=== PATIENT | male | born 1970 | race Caucasian/White ===

== ENCOUNTER 2020-04-03 21:12 | Emergency (ER) | payer OTHER, SELFPAY ==
[2020-04-03 21:20] VITALS: BP 141/77; PULSE 81; RESP 16; TEMP 36.6; O2SAT 97; BMI 24.3
--- NOTE | 2020-04-03 21:25 | PC.NURSE ---
provider set up with suture tray and wash basin with betadine. Provider numbed finger and cleaned wound.
[2020-04-03] MEDS: TET,DIPH,PERTUSS(ACELL),VAC/PF 0.5 ML SYRINGE IM (21:30)
[2020-04-03] MEDS: BACITRACIN OINT 0.9 GM PCKT 1 APPLIC TOP (21:48)
--- NOTE | 2020-04-03 21:48 | ED.WOUNDLAC ---
HPI - Wound/Laceration General Chief Complaint: Wound/Laceration Stated Complaint: laceration to pinky finger left hand Time Seen by Provider: 04/03/20 21:15 Source: patient Mode of arrival: Ambulatory Limitations: no limitations History of Present Illness HPI narrative: 49M former smoker presents with laceration to left pinky while working on a car. He caught it on some sharp plastic. He denies any numbness, tingling or weakness. He states that bled significantly early on but after pressure became controlled. His tetanus is not up-to-date. Patient denies any fever chills nor chest pain or shortness of breath. He is otherwise well and free of complaint Onset (ago): hour(s) Extremity Location: Left: hand Place: work Patient tetanus UTD: No Context: accidental Associated symptoms: none Treatments prior to arrival: bandage Related Data Previous Rx's Medication Instructions Recorded cephalexin [Keflex] 500 mg PO QID 7 Days #28 cap 04/03/20 Allergies Allergy/AdvReac Type Severity Reaction Status Date / Time Penicillins Allergy Verified 04/03/20 21:22 Review of Systems Constitutional Constitutional: Denies chills, Denies fatigue, Denies fever(s), Denies frequent falls, Denies lethargy and Denies weakness Eyes Eyes: Denies change in vision, Denies eye discharge, Denies irritation and Denies loss of vision ENT Ears, Nose, Mouth, and Throat: Denies change in voice, Denies dizziness, Denies neck pain, Denies sore throat and Denies throat swelling Cardiovascular Cardiovascular: Denies chest pain, Denies irregular heart rhythm, Denies lightheadedness, Denies palpitations, Denies dyspnea, Denies dyspnea on exertion and Denies orthopnea Respiratory Respiratory: Denies cough, Denies dyspnea, Denies dyspnea on exertion and Denies wheezing Gastrointestinal Gastrointestinal: Denies abdominal pain, Denies change in bowel habits, Denies diarrhea, Denies nausea and Denies vomiting Genitourinary Genitourinary: Denies hematuria, Denies flank pain, Denies urinary incontinence and Denies urinary urgency Musculoskeletal Musculoskeletal: Denies back pain, Denies muscle weakness, Denies neck pain, Denies numbness and Denies tingling Integumentary/Breasts Skin/Breast: Denies pruritus, Denies erythema, Denies rash and Reports wounds Neurologic Neurologic: Denies behavioral changes, Denies confusion, Denies dizziness, Denies frequent falls, Denies loss of vision, Denies numbness, Denies tingling and Denies weakness Psychiatric Psychiatric: Denies anxiety, Denies behavioral changes, Denies confusion, Denies depression, Denies homicidal ideation and Denies suicidal ideation Endocrine Endocrine: Denies fatigue, Denies flushing and Denies palpitations Hematologic/Lymphatic Hematologic/Lymphatic: Denies easy bruising Allergic/Immunologic Allergic/Immunologic: Denies urticaria, Denies throat swelling and Denies wheezing Patient History alcohol intake frequency: holidays/special occasions only Exam Narrative Exam Narrative: GEN: AOx3 and in mild distress EYES: Pupils are equal, round, and reactive to light and accommodation. Extraoccular muscles are intact bilaterally. There is no subconjunctival hemorrhage or exudate. CHEST: Lungs are clear to auscultation bilaterally and free of wheezes, rales, or rhonchi. Heart rate is regular rhythm, there are no murmurs, clicks, rubs, or gallops. There is no chest wall tenderness. ABD: Abdomen is soft and nontender. There is no guarding or rebound. Bowel sounds are normal in all 4 quadrants. There is no mass or organomegaly. EXT: 1.5cm laceration on lateral aspect of left fifth finger. No FB noted. No tendon or arterial involvemtn. Full painless ROM of all extremities with no loss of sensation or strength. SKIN: Warm, pink, and dry. No erythema or rash Initial Vital Signs Initial Vital Signs: Vital Signs Temperature 98 F 04/03/20 21:20 Pulse Rate 81 04/03/20 21:20 Respiratory Rate 16 04/03/20 21:20 Blood Pressure 141/77 H 04/03/20 21:20 Pulse Oximetry 97 04/03/20 21:20 Procedures Laceration Repair Laceration 1: Site: upper extremity Side (If applicable): right Size (cm): 1.5 Description: linear Depth: simple, single layer Local Anesthetic: bupivacaine 0.25% Amount of anesthesia used (mL): 4 Pre-repair: wound explored, irrigated extensively and deep structures intact Skin layer closed with: nylon Size (cm): 5-0 Number of sutures: 4 Technique: simple, interrupted Course Orders Ordered: Discontinued Medications Bacitracin (Bacitracin) 1 applic TOP NOW ONE Stop: 04/03/20 21:44 Diphtheria/Tetanus/Acell Pertussis (Adacel) 0.5 ml IM .ONCE ONE Stop: 04/03/20 21:21 Last Admin: 04/03/20 21:30 Dose: 0.5 ml Documented by: VASQUEZ Lidocaine/Sodium Bicarbonate (Buffered Lidocaine 10 Ml Syr) 10 ml INJ NOW ONE Stop: 04/03/20 21:21 Vital Signs Vital signs: Vital Signs - 8 hr 04/03/20 21:20 Temperature 98 F Pulse Rate 81 Respiratory Rate 16 Blood Pressure 141/77 H Pulse Oximetry 97 Discharge Plan Departure Patient Disposition: Home Clinical Impression: Laceration Discharge Date/Time: 04/03/20 21:56 Instructions: DI for Laceration Repair Activity Restrictions/Additional Instructions: Please keep the wound clean and dry to the best of your ability. Please monitor for signs of infection such as redness to the skin or increasing pain. Have the sutures removed by your doctor in about 7 days. If you are unable to get into your doctor, we would be happy to remove the sutures in that same timeframe. Prescriptions: New cephalexin [Keflex] 500 mg capsule 500 mg PO QID 7 Days Qty: 28 RF: 0
--- NOTE | 2020-04-03 21:49 | PC.NURSE ---
provider placed four stitches. bacitracin applied and covered with bandaid.
[2020-04-03 21:55] VITALS: BP 144/81; PULSE 88; RESP 16; O2SAT 99
== END 2020-04-03 21:56 | disposition home or self-care (01) ==
PROVIDERS: Emergency Provider Emergency Medicine
DX: S61.217A Laceration without foreign body of left little finger without damage to nail, initial encounter (principal); W26.8XXA Contact with other sharp object(s), not elsewhere classified, initial encounter; Z23 Encounter for immunization
CPT/HCPCS: 12001; 90471; 99283; 90715

== ENCOUNTER → 2021-01-31 16:04 | Outpatient (CLI) | payer OTHER, SELFPAY ==
--- NOTE | 2021-01-31 16:09 | DI.MRI.S_ITS ---
PROCEDURE: MR WRIST RT WO CON INDICATIONS: PAIN RIGHT WRIST TECHNIQUE: Noncontrast coronal proton density fast spin echo and T2 fast spin echo with fat saturation; coronal 3-D gradient echo, axial T1 spin echo and T2 fast spin echo with fat saturation, sagittal T1 spin echo through the wrist. COMPARISON: None. FINDINGS: Image quality: Excellent. Bones and cartilage: The carpal bones are normally aligned. No bone marrow contusions or fractures. No evidence for avascular necrosis. There is thickened appearance of the radial and ulnar collateral ligaments at the 1st CMC joint, technically age indeterminate. Scattered degenerative subchondral sclerosis and spurring. 5th MCP joint effusion Carpal ligaments: The triquetral ligament appears intact. The scapholunate ligament appears intact although there is some internal T2 hyperintensity, for example image 7/6. In the absence of intra-articular contrast, the extrinsic carpal ligaments are not well identified. On sagittal images, the pisohamate ligament appears intact. Triangular fibrocartilage complex: The triangular fibrocartilage appears intact. The adjacent meniscal homolog appears normal in the absence of intra-articular contrast. The extensor carpi ulnaris tendon is intact although there is mild tenosynovitis. Tendons and soft tissues: The carpal tunnel structures appear normal, including the median nerve. The ulnar nerve appears normal within Guyon's canal. There is mild fluid surrounding the extensor carpi radialis longus and brevis tendons in keeping with low-grade tenosynovitis No soft tissue ganglion cysts. IMPRESSION: Possible age-indeterminate sprain of the radial and ulnar collateral ligaments at the 1st CMC joint. Intrasubstance signal change present within the scapholunate ligament raising the possibility of tear although not well seen. This could be further assessed with dedicated MR arthrography as clinically necessary. Mild extensor carpi radialis brevis and longus tenosynovitis. Mild extensor carpi ulnaris tenosynovitis Dictated by: Jignesh Abernathy M.D. on 02/01/2021 at 9:37 Approved by: Jignesh Abernathy M.D. on 02/01/2021 at 9:46
== END ==
PROVIDERS: Referring Provider Physician Assistant; Visit Provider Physician Assistant
DX: M25.531 Pain in right wrist (principal); M65.841 Other synovitis and tenosynovitis, right hand
CPT/HCPCS: 73221